=== PATIENT | female | born 1960 | race Caucasian/White ===

== ENCOUNTER 2018-01-18 05:57 | Day surgery (SDC) | payer OTHER ==
[2018-01-18] MEDS ORDERED: fentaNYL 100 MCG/2 ML SDV IV ONE ×3 (05:58→06:44)
[2018-01-18] MEDS ORDERED: Midazolam 1 MG/ML 2 ML SDV IV ONE ×3 (05:58→06:46)
[2018-01-18] MEDS ORDERED: Dextrose 5%-0.45% NaCl 1,000 ML IV SCH (06:00)
[2018-01-18] MEDS ORDERED: Sodium Chloride 0.9% 10 ML Syringe FLUSH PRN (06:00)
[2018-01-18] MEDS ORDERED: Midazolam 1 MG/ML 2 ML SDV ONE (06:15)
[2018-01-18] MEDS ORDERED: fentaNYL 100 MCG/2 ML SDV ONE (06:15)
--- NOTE | 2018-01-18 07:56 | OR ---
DATE: 01/18/2018 PROCEDURE PERFORMED: Esophagogastroduodenoscopy and multiple pinch biopsies. INSTRUMENT USED: GIF-H180 Olympus video panendoscope. PREMEDICATIONS: No oral topical anesthesia used. Fentanyl 100 mcg intravenous and Versed 2 mg intravenous. The procedure was done under pulse oximetry, BP recording, and conveyor monitor. INDICATION: The patient with known GERD, on long-term PPI with recurrent spells of choking unexplained and not responsive to medical measures. Esophagogastroduodenoscopy is performed for detection of any active erosive lesions, malignancy also under consideration, endoscopic hemostasis therapy if needed, esophageal dilatations if indicated. DESCRIPTION OF PROCEDURE: The scope was passed with ease. Adequate visualization of the esophagus was made from proximal to distal areas. No upper esophageal lesions identified. No distal esophageal stricture. No uphill or downhill esophageal varices. No Yesenia-Casas tear. Grade A erosive changes were noted by Tyler criteria. No esophageal polyp or tumor mass identified. Z-line was seen at around 35 cm distal to the oral verge, configuration consistent with grade 1 by ZAP classification. Four-quadrant biopsies were taken from the area of the Z-line and sent for any histopathologic evidence of intestinal metaplasia. No proximal gastric varices noted. Gastric fundus examination by retroflexion showed multiple benign-appearing diminutive polyps. No gastric ulcer, malignant mass, or vascular ectasia identified. Duodenal bulb showed no ulcer. Visualized second part of the duodenum was unremarkable. No bleeding was noted from any of the visualized areas at the completion of examination. Photographs were taken of the duodenal bulb, gastric antrum and fundus, and distal esophagus. IMPRESSION: 1. Diminutive gastric fundus polyps. 2. Grade A gastroesophageal reflux disease. The patient tolerated the procedure well. [facility] /[id number]
== END 2018-01-18 09:00 | disposition home or self-care (01) ==
LOC: DL.ENDO 05:57
PROVIDERS: ATTEND Internal Medicine Gastroenterology
DX: K22.10 Ulcer of esophagus without bleeding (principal); K21.0 Gastro-esophageal reflux disease with esophagitis; K31.7 Polyp of stomach and duodenum; Z88.1 Allergy status to other antibiotic agents; Z88.2 Allergy status to sulfonamides
CPT/HCPCS: 43239; J7042; J2250; J3010

== ENCOUNTER 2019-10-23 01:19 | Emergency (ER) | payer OTHER ==
[2019-10-23] MEDS ORDERED: Ketorolac 30 MG/ML SDV IVPUSH ONE (01:41)
--- NOTE | 2019-10-23 01:43 | EDM.PDOC ---
ED HPI GENERAL MEDICAL PROBLEM - General Chief Complaint: Chest Pain Stated Complaint: CHEST PAIN, BACK, LEFT ARM Time Seen by Provider: 10/23/19 01:41 Source of Information: Reports: Patient History Limitations: Reports: No Limitations - History of Present Illness INITIAL COMMENTS - FREE TEXT/NARRATIVE: sudden onset pain between shoulders radiating to left arm to front chest then to back again. gives h/o spine fusion in neck and low back. Middle Back Pain Score (Numeric/FACES): 8 - Related Data Allergies Allergy/AdvReac Type Severity Reaction Status Date / Time erythromycin base AdvReac Nausea and Verified 10/23/19 01:25 Vomiting Sulfa (Sulfonamide AdvReac Nausea and Verified 10/23/19 01:25 Antibiotics) Vomiting Home Meds: Home Meds Acetaminophen [Tylenol Arthritis] 650 mg PO DAILY 01/14/18 [History] Albuterol [Proair HFA] 2 puff INH Q4H PRN 01/14/18 [History] Amoxicillin 500 mg PO ASDIRECTED 01/14/18 [History] Ascorbate Calcium/Bioflavonoid [Shreya-C 500 MG] 1 tab PO DAILY 01/14/18 [History ] Butalb/Acetaminophen/Caffeine [Spqnga-Ffrwdynz-Cwfl 50-325-40] 1 - 2 tab PO Q6H PRN 01/14/18 [History] Calcium Carbonate/Vitamin D3 [Calcium 600 + Vit D 400 Softgl] 1 tab PO DAILY [History] Cranberry 500 mg PO DAILY 01/14/18 [History] Loratadine 10 mg PO DAILY 01/14/18 [History] Multivitamin [Daily Multiple Vitamin] 1 tab PO DAILY 01/14/18 [History] Omeprazole 20 mg PO DAILY 01/14/18 [History] Orphenadrine [Norflex] 100 mg PO BID 01/14/18 [History] Vitamin B Complex [B Complex] 1 tab PO DAILY 01/14/18 [History] Magnesium Oxide [Magnesium] 1,000 mg PO DAILY 09/02/19 [History] Turmeric 400 mg PO DAILY 09/02/19 [History] Past Medical History HEENT History: Reports: Impaired Vision, Other (See Below) Other HEENT History: HX OF SEASONAL ALLERGIES Cardiovascular History: Reports: None Respiratory History: Reports: Asthma, Other (See Below) Other Respiratory History: HX OF EXTRINSIC ASTHMA Gastrointestinal History: Reports: GERD Genitourinary History: Reports: Other (See Below) Other Genitourinary History: POST-MENOPAUSAL BLEEDING Musculoskeletal History: Reports: Arthritis, Back Pain, Chronic, Other (See Below) Other Musculoskeletal History: INTERNAL DERANGEMENT OF KNEE. RIGHT KNEE INJURY. orthoscopy rt knee. total hip replacement of right hip Neurological History: Reports: Migraines Other Neuro History: Hx of migraines. currently has neck fusion of C5,6,7( anterior access) which can cause her headaches Psychiatric History: Reports: None Endocrine/Metabolic History: Reports: None Other Endocrine/Metabolic History: PREDIABETES Hematologic History: Reports: Blood Transfusion(s) Immunologic History: Reports: None Oncologic (Cancer) History: Reports: None Dermatologic History: Reports: Other (See Below) Other Dermatologic History: ACTINIC KERATOSIS - Infectious Disease History Infectious Disease History: Reports: Chicken Pox, Measles, Rubella - Past Surgical History HEENT Surgical History: Reports: Adenoidectomy, Tonsillectomy Cardiovascular Surgical History: Reports: None GI Surgical History: Reports: Colonoscopy, EGD Female Surgical History: Reports: Breast Reduction, Endometrial Ablation, Other (See Below) Other Female Surgeries/Procedures: HX OF ABDNORMAL PAP SMEAR OF CERVIX Endocrine Surgical History: Reports: None Neurological Surgical History: Reports: Discectomy, Lumbar Spine, Spinal Fusion Musculoskeletal Surgical History: Reports: Arthroscopic Knee, Carpal Tunnel, Other (See Below) Other Musculoskeletal Surgeries/Procedures:: CARPAL TUNNEL RELEASE RIGHT. HIP SURGERY RIGHT ARTHROPLASTY. RIGHT GREAT CHEILECTOMY. RIGHT FOOT OSTEOTOMY. RIGHT HAMMER TOE REPAIR. INJECTION INTO JOINT BILAT BOTH BASILAR THUMBS Social & Family History - Family History Family Medical History: Noncontributory - Tobacco Use Smoking Status *Q: Unknown Ever Smoked Second Hand Smoke Exposure: No - Caffeine Use Caffeine Use: Reports: Coffee, Tea Other Caffeine Use: 2 cups tea daily. 1 cup coffee on weekend - Recreational Drug Use Recreational Drug Use: No ED ROS GENERAL - Review of Systems Review Of Systems: Comprehensive ROS is negative, except as noted in HPI. ED EXAM, GENERAL - Physical Exam Exam: See Below Exam Limited By: No Limitations General Appearance: Alert, WD/WN, No Apparent Distress Ears: Hearing Grossly Normal Throat/Mouth: Normal Voice, No Airway Compromise Head: Atraumatic Neck: Non-Tender, Full Range of Motion Respiratory/Chest: No Respiratory Distress Cardiovascular: Regular Rate, Rhythm GI/Abdominal: Soft, Non-Tender Back Exam: Paraspinal Tenderness, Other (rhomboid region) Neurological: Alert, Oriented, Normal Cognition, Normal Gait, No Motor/Sensory Deficits Psychiatric: Normal Affect, Normal Mood Skin Exam: Warm, Dry, Normal Color Lymphatic: No Adenopathy Course - Vital Signs Last Recorded V/S: Last Vital Signs Temp 36.4 C 10/23/19 01:25 Pulse 87 10/23/19 01:25 Resp 16 10/23/19 01:25 BP 169/86 H 10/23/19 01:25 Pulse Ox 100 10/23/19 01:25 - Orders/Labs/Meds Orders: Active Orders 24 hr Category Date Time Status EKG 12 Lead [EKG Documentation Completion] [RC] STAT Care 10/23/19 01:40 Active Chest 1V Frontal [CR] Urgent Exams 10/23/19 02:29 Taken Labs: Laboratory Tests 10/23/19 10/23/19 10/23/19 Range/Units 01:35 01:35 01:35 WBC 7.6 (5.0-10.0) 10^3/uL RBC 4.05 L (4.2-5.4) 10^6/uL Hgb 12.6 (12.0-16.0) g/dL Hct 37.0 (37.0-47.0) % MCV 91.4 (80-100) fL MCH 31.1 (27.0-34.0) pg MCHC 34.1 (33.0-35.0) g/dL Plt Count 244 (150-450) 10^3/uL Neut % (Auto) 54.2 (42.2-75.2) % Lymph % (Auto) 31.5 (20.5-50.1) % Wood % (Auto) 10.4 H (2-8) % Eos % (Auto) 3.4 H (1.0-3.0) % Baso % (Auto) 0.5 (0.0-1.0) % D-Dimer, Quantitative < 100 (0-400) ng/mL Sodium 138 (135-145) mmol/L Potassium 3.7 (3.6-5.0) mmol/L Chloride 101 (101-111) mmol/L Carbon Dioxide 25.0 (21.0-31.0) mmol/L Anion Gap 15.7 BUN 16 (7-18) mg/dL Creatinine 0.6 (0.6-1.3) mg/dL Est Cr Clr Drug Dosing 88.60 mL/min Estimated GFR (MDRD) > 60 BUN/Creatinine Ratio 26.66 Glucose 106 H (74-105) mg/dL Lactic Acid (0.5-2.0) mmol/L Calcium 9.4 (8.4-10.2) mg/dl Total Bilirubin 0.4 (0.2-1.0) mg/dL AST 25 (10-42) IU/L ALT 26 (10-60) IU/L Alkaline Phosphatase 47 (42-121) IU/L Troponin I < 0.02 (0.00-0.02) ng/ml B-Natriuretic Peptide 6 (0-100) pg/ml Total Protein 7.6 (6.7-8.2) g/dl Albumin 4.6 (3.2-5.5) g/dl Globulin 3.0 Albumin/Globulin Ratio 1.53 01/26/20 Range/Units 01:35 WBC (5.0-10.0) 10^3/uL RBC (4.2-5.4) 10^6/uL Hgb (12.0-16.0) g/dL Hct (37.0-47.0) % MCV (80-100) fL MCH (27.0-34.0) pg MCHC (33.0-35.0) g/dL Plt Count (150-450) 10^3/uL Neut % (Auto) (42.2-75.2) % Lymph % (Auto) (20.5-50.1) % Wood % (Auto) (2-8) % Eos % (Auto) (1.0-3.0) % Baso % (Auto) (0.0-1.0) % D-Dimer, Quantitative (0-400) ng/mL Sodium (135-145) mmol/L Potassium (3.6-5.0) mmol/L Chloride (101-111) mmol/L Carbon Dioxide (21.0-31.0) mmol/L Anion Gap BUN (7-18) mg/dL Creatinine (0.6-1.3) mg/dL Est Cr Clr Drug Dosing mL/min Estimated GFR (MDRD) BUN/Creatinine Ratio Glucose (74-105) mg/dL Lactic Acid 1.3 (0.5-2.0) mmol/L Calcium (8.4-10.2) mg/dl Total Bilirubin (0.2-1.0) mg/dL AST (10-42) IU/L ALT (10-60) IU/L Alkaline Phosphatase (42-121) IU/L Troponin I (0.00-0.02) ng/ml B-Natriuretic Peptide (0-100) pg/ml Total Protein (6.7-8.2) g/dl Albumin (3.2-5.5) g/dl Globulin Albumin/Globulin Ratio Meds: Medications Discontinued Medications Generic Name Dose Route Start Last Admin Trade Name Freq PRN Reason Stop Dose Admin Ketorolac Tromethamine 30 mg 10/23/19 01:41 10/23/19 01:54 Toradol IVPUSH 10/23/19 01:42 30 mg ONETIME ONE Administration - Re-Assessments/Exams Free Text/Narrative Re-Assessment/Exam: 10/23/19 02:31 re-exam; s/p toradol = much better 10/23/19 03:05 results discussed with pt who is feeling much much better, Departure - Departure Time of Disposition: 03:05 Disposition: Home, Self-Care 01 Condition: Good Clinical Impression: Rhomboid muscle pain Instructions: Muscle Cramps and Spasms, [id number] Forms: ED Department Discharge Additional Instructions: 1) avoid lifting 2) try ice or heat to sore areas 3) take tylenol or motrin for discomfort 4) recheck as needed Sepsis Event Note - Evaluation Sepsis Screening Result: No Definite Risk - Focused Exam Vital Signs: Vital Signs Temp Pulse Resp BP Pulse Ox 10/23/19 01:25 36.4 C 87 16 169/86 H 100 Date Exam was Performed: 10/23/19 Time Exam was Performed: 03:04 - My Orders Last 24 Hours: My Active Orders 10/23/19 01:40 EKG 12 Lead [EKG Documentation Completion] [RC] STAT 10/23/19 02:29 Chest 1V Frontal [CR] Urgent - Assessment/Plan Last 24 Hours: My Active Orders 10/23/19 01:40 EKG 12 Lead [EKG Documentation Completion] [RC] STAT 10/23/19 02:29 Chest 1V Frontal [CR] Urgent
[2019-10-23 02:14] LABS: ANION GAP 15.7; CHLORIDE,CL 101 mmol/L (101-111); SODIUM,NA 138 mmol/L (135-145)
== END 2019-10-23 03:07 | disposition home or self-care (01) ==
LOC: DL.ED 01:19
DX: M79.10 Myalgia, unspecified site (principal); J45.909 Unspecified asthma, uncomplicated; K21.9 Gastro-esophageal reflux disease without esophagitis; M19.90 Unspecified osteoarthritis, unspecified site; Z88.1 Allergy status to other antibiotic agents; Z88.2 Allergy status to sulfonamides; Z79.899 Other long term (current) drug therapy
CPT/HCPCS: 36415; 71045; 80053; 83605; 83880; 84484; 85025; 85379; 93005; 96374; 99284; J1885